=== PATIENT | female | born 2000 | race Two or more races ===

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

== ENCOUNTER → 2024-01-13 | Emergency (ER) | payer OTHER ==
[~2024-01-13] VITALS: Ht 152.4 cm; Wt 56.7 kg
[~2024-01-13] MED LIST: CEFTRIAXONE SODIUM 1,000 MG VIAL ONE; CEFTRIAXONE SODIUM 2,000 MG VIAL IV ONE; IRON325 MG PO; KETOROLAC TROMETHAMINE 30 MG VIAL IV ONE; KETOROLAC TROMETHAMINE 30 MG VIAL ONE; PRENATAL TABLE1 EAC1 PO
== END | disposition home or self-care (01) ==
LOC: ER 20:12
DX: N75.8 Other diseases of Bartholin's gland (principal); Z91.040 Latex allergy status; L29.2 Pruritus vulvae